=== PATIENT | female | born 1985 | race Caucasian/White ===

== ENCOUNTER 2020-05-29 03:27 | Emergency (ER) | payer BC ==
[~2020-05-29] VITALS: Ht 167.6 cm; Wt 59.0 kg
--- NOTE | 2020-05-29 03:33 | PHYS DOC ---
General Adult HPI: HPI: ".. I had some terrible stabbing pains.... Here in my left back and flank seems to come around into my groin...." " The pain is so bad it causes me the vomit..." " It been off and on last two days..." Patient is a 35 year old female who presents with above hx and complaints of N/V, abdomen pain. Left flank pain that radiates to her groin. No history of trauma. No history of travel. No history of contacts. No history of bad food. No history of kidney stones. No history of ulcer colitis with her or family members. Ovarian cyst. No history of travel or sick ill contacts. No history of bad food intake. Normally follows with Dr. Chung [facility] but now is and no longer goes to [facility] for care. Patient states at times the pain is 8-10 out of 10. Pain seems to be intermittent. No history of immunosuppression. Review of Systems: Review of Systems: Constitutional: Denies fever or chills Eyes: Denies change in visual acuity HENT: Denies nasal congestion or sore throat Respiratory: Denies cough or shortness of breath Cardiovascular: Denies chest pain or edema GI: Complains of severe left flank abdominal pain, nausea, vomiting,. Denies bloody stools or diarrhea : Denies dysuria. Musculoskeletal: Complaints of Lt . flank back pain Integument: Denies rash Neurologic: Denies headache, focal weakness or sensory changes Endocrine: Denies polyuria or polydipsia Lymphatic: Denies swollen glands Psychiatric: Denies depression or anxiety Family History: Family History: Noncontributory to presentation. Current Medications: Current Meds: See nursing for home meds Allergies: Allergies: No known drug allergies Physical Exam: PE: Constitutional: Well developed, well nourished, in acute distress, non-toxic appearance. [] HENT: Normocephalic, atraumatic, bilateral external ears normal, oropharynx moist, no oral exudates, nose normal. [] Eyes: PERRLA, EOMI, conjunctiva normal, no discharge. [] Neck: Normal range of motion, no tenderness, supple, no stridor. [] Cardiovascular:Heart rate regular rhythm, no murmur [] Lungs & Thorax: Bilateral breath sounds equal apex with few scattered wheezes on auscultation [] Abdomen: Bowel sounds decreased, soft, left flank and mid abdomen tenderness, no masses, no pulsatile masses. Re bound to mid abdomen Skin: Warm, diaphoretic, no erythema, no rash. Tattoos Back: Mid back tenderness, left CVA tenderness on percussion Extremities: No tenderness, no cyanosis, no clubbing, ROM intact, no edema. No cording. No psoas sign. Neurologic: Alert and oriented X 3, normal motor function, normal sensory function, no focal deficits noted. [] Psychologic: Affect anxious, judgement normal, mood normal. [] EKG: EKG: My interpretation EKG shows a sinus rhythm at 80 bpm. No acute morphology [] Radiology/Procedures: Radiology/Procedures: [address] [address] IMAGING REPORT Signed PATIENT: JOHNSON ROSS ACCOUNT: [id number] : 1985 LOCATION: ER AGE: 35 SEX: F EXAM STATUS: REG ER ORD. PHYSICIAN: LISBETH LAW MD REASON: Left sided flank and abdomen pain, hematuria PROCEDURE: ACUTE ABDOMEN SERIES PA chest and AP upright supine abdomen x-rays HISTORY: Left-sided flank pain and abdomen pain, hematuria. FINDINGS: Heart and mediastinum are unremarkable. No pulmonary opacities or pleural effusions. No pneumoperitoneum. Nipple shadow right lung base. Moderate volume of stool. No dilated bowel loops or abnormal air-fluid levels. Bones and soft tissues are unremarkable. No radiopaque renal calculi evident. IMPRESSION: No acute process in the chest. No small bowel obstruction. Moderate volume of stool is present. Electronically signed by: Vijay Beard MD (05/29/2020 5:15 AM) [facility] DICTATED AND SIGNED BY: VIJAY BEARD MD DATE: 05/29/20512 CC: LISBETH LAW MD; PCP,NO ~MTH0 0 [][address] [address] IMAGING REPORT Signed PATIENT: JOHNSON ROSS ACCOUNT: [id number] : 1985 LOCATION: ER AGE: 35 SEX: F EXAM STATUS: REG ER ORD. PHYSICIAN: LISBETH LAW MD REASON: Lt.flank pain, hematuria PROCEDURE: CT ABDOMEN PELVIS WO CONTRAST CT abdomen and pelvis without contrast PQRS statement: CT scans at this facility use dose reduction including either automated exposure control, iterative reconstructions, and /or weight based radiation dosing via mA and kV modification when appropriate to reduce radiation dose to as low as reasonably achievable. HISTORY: Left leg pain. Hematuria. Abdomen findings: Chronic anterior wedge L1 vertebral compression fracture with mild bony retropulsion may contribute to mild spinal canal stenosis. Lung bases unremarkable. Liver, gallbladder, spleen, adrenal glands, pancreas unremarkable. Bilateral nephrolithiasis. 2 mm left ureterovesical junction calculus with mild left renal hydronephrosis renal pelvis diameter 1 cm and mild dilation of ureter. There is a moderate volume of stool throughout the large bowel. No obstruction or inflammation GI tract. Appendix is negative. No abdominal fluid. Pelvis findings: 2 mm left ureterovesical junction calculus of the bladder. Ovaries, uterus, rectum and bones are unremarkable. IMPRESSION: 1. Mild left hydronephrosis associated with a 2 mm obstructing ureterovesical junction calculus. 2. Bilateral nephrolithiasis. 3. Appendix is negative. Electronically signed by: Vijay Beard MD (05/29/2020 5:20 AM) [facility] DICTATED AND SIGNED BY: VIJAY BEARD MD DATE: 05/29/20 0516 CC: LISBETH LAW MD; PCP,NO ~MTH0 0 Heart Score: C/O Chest Pain: N/A HEART Score for Chest Pain: HEART Score for Chest Pain Response (Comments) Value History Slighlty/Non-Suspicious 0 ECG Normal 0 Age < 45 0 Risk Factors 1 or 2 Risk Factors 1 Troponin < Normal Limit 0 Total 1 Risk Factors: Risk Factors: DM, Current or recent (<one month) smoker, HTN, HLP, family history of CAD, obesity. Risk Scores: Score 0 - 3: 2.5% MACE over next 6 weeks - Discharge Home Score 4 - 6: 20.3% MACE over next 6 weeks - Admit for Clinical Observation Score 7 - 10: 72.7% MACE over next 6 weeks - Early Invasive Strategies Course & Med Decision Making: Course & Med Decision Making Pertinent Labs and Imaging studies reviewed. (See chart for details) Patient push fluids. Take Tylenol and ibuprofen for pain. May take Vicoprofen for marked pain. Patient take Zofran 8 mg with 4 times a day for active vomiting. Patient take Flomax at night. Patient follow-up with primary care. Patient follow-up with urology. Save stone if passed. Impression; 1. Abdomen pain 2. Nausea and vomiting 3. Renal colic-2 mm stone at the UVJ junction on the left with mild hydronephrosis 4. Hematuria 5. Mild anemia hemoglobin 11.4 6. Urine Drug Screen + Meth and MJ [] Dragon Disclaimer: Dragon Disclaimer: This electronic medical record was generated, in whole or in part, using a voice recognition dictation system. Departure Departure: Referrals: PCP,NO (PCP) Scripts Ondansetron Hcl (ZOFRAN) 4 Mg Tablet 8 MG PO QIDPRN PRN for NAUSEA/VOMITING, #30 TAB Prov: LISBETH LAW MD 05/29/20 Hydrocodone/Ibuprofen (HYDROCODONE-IBUPROFEN 7.5-200 ) 1 Each Tablet 1 TAB PO PRN Q6HRS PRN for PAIN, #30 TAB 0 Refills Prov: LISBETH LAW MD 05/29/20 Tamsulosin Hcl (FLOMAX) 0.4 Mg Cap.er.24h 0.4 MG PO daily hs for renal stone, #30 CAP.SR Prov: LISBETH LAW MD 05/29/20 Dragon Disclaimer This chart was dictated in whole or in part using Voice Recognition software in a busy, high-work load, and often noisy Emergency Department environment. It may contain unintended and wholly unrecognized errors or omissions. LISBETH LAW MD May 29, 2020 03:33
[2020-05-29] MEDS ORDERED: KETOROLAC 30 MG/ML VIAL. IVP ONE (04:00)
[2020-05-29] MEDS ORDERED: ONDANSETRON PF 4 MG/2 ML VIAL. IVP ONE (04:00)
[2020-05-29] MEDS ORDERED: IV RINGERS SOLUTION,LACTATED 1,000 ML IV SCH (04:00)
[2020-05-29] MEDS ORDERED: FAMOTIDINE 20 MG/2 ML VIAL IVP ONE (04:00)
[2020-05-29 04:13] LABS: BACTERIA,URINE 0 /HPF (0-FEW); BILIRUBIN,URINE NEG (NEG); CLARITY,URINE HAZY; COLOR,URINE YELLOW; GLUCOSE,URINE NEG (NEG); NITRITE,URINE NEG (NEG); RBC,URINE >40 /HPF (0-2); SQUAMOUS EPITHELIAL CELL,UR FEW /LPF; UROBILINOGEN,URINE 0.2 mg/dL (0.2 mg/dL); WBC,URINE OCC /HPF (0-4)
[2020-05-29 04:27] LABS: BASO # 0.1 x10^3/uL (0.0-0.2); BASO % 1 % (0-3); EOS % 0 % (0-3); HEMATOCRIT 34.8 % (36.0-47.0); HEMOGLOBIN 11.4 g/dL (12.0-15.5); LYMPH # 0.7 x10^3/uL (1.0-4.8); LYMPH % 8 % (24-48); MEAN CORPUSCULAR HEMOGLOBIN 31 pg (25-35); MEAN CORPUSCULAR HGB CONC 33 g/dL (31-37); MEAN CORPUSCULAR VOLUME 96 fL (79-100); MONO # 0.3 x10^3/uL (0.0-1.1); MONO % 4 % (0-9); NEUT # 7.8 x10^3uL (1.8-7.7); NEUT % 88 % (31-73); PLATELET COUNT 270 x10^3/uL (140-400); RED BLOOD COUNT 3.63 x10^6/uL (3.50-5.40); RED CELL DISTRIBUTION WIDTH 13.8 % (11.5-14.5); WHITE BLOOD COUNT 8.9 x10^3/uL (4.0-11.0)
[2020-05-29] MEDS ORDERED: TAMSULOSIN 0.4 MG CAP.ER.24H. PO ONE ×2 (04:30→04:44)
[2020-05-29] MEDS ORDERED: KETOROLAC 15 MG/ML VIAL. ONE (04:42)
[2020-05-29] MEDS ORDERED: FAMOTIDINE 20 MG/2 ML VIAL ONE (04:42)
[2020-05-29] MEDS ORDERED: ONDANSETRON PF 4 MG/2 ML VIAL. ONE (04:42)
[2020-05-29] MEDS ORDERED: KETOROLAC 30 MG/ML VIAL. ONE (04:44)
[2020-05-29 04:51] LABS: U PREG PATIENT NEGATIVE (NEG)
[2020-05-29 04:53] LABS: CALCIUM 8.8 mg/dL (8.5-10.1); CREATININE 0.8 mg/dL (0.6-1.0); GFR 81.2
[2020-05-29 04:53] LABS: BARBITURATES NEG (NEG); BENZODIAZEPINES NEG (NEG); CANNABINOIDS POS (NEG); COCAINE NEG (NEG); METHADONE NEG (NEG); OPIATES NEG (NEG); PHENCYCLIDINE NEG (NEG)
[2020-05-29 04:54] LABS: AMPHETAMINE/METHAMPHETAMINE POS (NEG)
[2020-05-29 05:05] LABS: ALBUMIN 3.8 g/dL (3.4-5.0); DIRECT BILIRUBIN 0.1 mg/dL (0.0-0.2); TOTAL BILIRUBIN 0.2 mg/dL (0.2-1.0); TOTAL PROTEIN 6.8 g/dL (6.4-8.2)
--- NOTE | 2020-05-29 05:17 | RAD ---
PA chest and AP upright supine abdomen x-rays HISTORY: Left-sided flank pain and abdomen pain, hematuria. FINDINGS: Heart and mediastinum are unremarkable. No pulmonary opacities or pleural effusions. No pne umoperitoneum. Nipple shadow right lung base. Moderate volume of stool. No dilated bowel loops or abn ormal air-fluid levels. Bones and soft tissues are unremarkable. No radiopaque renal calculi evident. IMPRESSION: No acute process in the chest. No small bowel obstruction. Moderate volume of stool is pr esent. Electronically signed by: Vijay Beard MD (05/29/2020 5:15 AM) [facility]
--- NOTE | 2020-05-29 05:23 | RAD ---
CT abdomen and pelvis without contrast PQRS statement: CT scans at this facility use dose reduction including either automated exposure cont rol, iterative reconstructions, and /or weight based radiation dosing via mA and kV modification when appropriate to reduce radiation dose to as low as reasonably achievable. HISTORY: Left leg pain. Hematuria. Abdomen findings: Chronic anterior wedge L1 vertebral compression fracture with mild bony retropulsio n may contribute to mild spinal canal stenosis. Lung bases unremarkable. Liver, gallbladder, spleen, adrenal glands, pancreas unremarkable. Bilateral nephrolithiasis. 2 mm left ureterovesical junction c alculus with mild left renal hydronephrosis renal pelvis diameter 1 cm and mild dilation of ureter. T here is a moderate volume of stool throughout the large bowel. No obstruction or inflammation GI trac t. Appendix is negative. No abdominal fluid. Pelvis findings: 2 mm left ureterovesical junction calculus of the bladder. Ovaries, uterus, rectum a nd bones are unremarkable. IMPRESSION: 1. Mild left hydronephrosis associated with a 2 mm obstructing ureterovesical junction calculus. 2. Bilateral nephrolithiasis. 3. Appendix is negative. Electronically signed by: Vijay Beard MD (05/29/2020 5:20 AM) [facility]
[2020-05-29] MEDS ORDERED: TAMS0.4C97 PO (05:48)
[2020-05-29] MEDS ORDERED: HYDR-1179 PO (05:48)
[2020-05-29] MEDS ORDERED: ONDA4TAB7 PO (05:48)
[2020-05-29 06:05] VITALS: BP 110/65
--- NOTE | 2020-05-29 08:37 | EKG ---
[address] [address] Test Date: 2020-05-29 Test Time: 04:32:04 Pat Name: JOHNSON ROSS Department: Room: Gender: F [employer] Supervisor: RONAN : 1985 Requested By: LISBETH LAW Order Number: [id number] Reading MD: Measurements Intervals [place] Rate: 80 P: 64 [place]: 154 QRS: 65 QRSD: 82 T: 59 QT: 378 QTc: 440 Interpretive Statements SINUS RHYTHM NORMAL ECG RI6.02 No previous ECG available for comparison
== END 2020-05-29 06:05 | disposition home or self-care (01) ==
LOC: ER 03:27
DX: N13.2 Hydronephrosis with renal and ureteral calculous obstruction (principal); R10.32 Left lower quadrant pain; R11.2 Nausea with vomiting, unspecified; R31.9 Hematuria, unspecified; D64.9 Anemia, unspecified
CPT/HCPCS: 36415; 74022; 74176; 80048; 80076; 80307; 81001; 81025; 82150; 83690; 84484; 84702; 85025; 85730; 93005; 96361; 96374; 96375; 99285; J1885; J2405; J3490; J7120